=== PATIENT | female | born 1950 | race Two or more races ===

== ENCOUNTER 2021-09-16 13:46 | Emergency (ER) | payer OTHER, SELFPAY ==
[~2021-09-16] VITALS: Ht 157.5 cm; Wt 104.3 kg
[2021-09-16 14:06] VITALS: BP 117/59
--- NOTE | 2021-09-16 14:15 | NUR ---
Dr. Pradhan evaluating patient in Tent1
--- NOTE | 2021-09-16 14:38 | NUR ---
Calling CT Dept to activate Code Stroke per Dr. Pradhan
--- NOTE | 2021-09-16 14:52 | NUR ---
PT BACK FROM CT AND TAKEN TO ER BED 9.
--- NOTE | 2021-09-16 15:00 | NUR ---
71 y/o F BIB daughter c/o chest pain and R-sided facial and hand numbness x 1 day. Pt reports dizziness, blurry vision, nausea, x 4 days. Pt reports 6/10, pressure/intermittent, non-radiating pain. Patient denies vomiting, diarrhea, dysuria, fever, chills, cold-like symptoms. Pt states Tylenol and Aleve with relief to symptoms yesterday. Pt placed onto engine monitor showing VSS. Bed locked in lowest position, side rails x 2. PMH: DM, HTN, breast CA Meds: ASA NKDA
--- NOTE | 2021-09-16 15:10 | NUR ---
Pt unable to void at this time.
--- NOTE | 2021-09-16 15:15 | NUR ---
Lab at bedside
[2021-09-16 15:35] LABS: BASOPHILS % (AUTO) 0.7 % (0.0-2.0); EOSINOPHILS # (AUTO) 0.1 K/uL (0-0.4); EOSINOPHILS % (AUTO) 0.8 % (0.0-4.0); HEMATOCRIT 33.8 % (36-48); LYMPHOCYTES # (AUTO) 1.1 K/uL (2.5-16.5); LYMPHOCYTES % (AUTO) 15.3 % (20.5-51.1); MEAN CORPUSCULAR HEMOGLOBIN 28 pg (27-31); MEAN CORPUSCULAR HGB CONC 32 g/dL (33-37); MONOCYTES # (AUTO) 0.5 K/uL (0.8-1.0); NEUTROPHILS # (AUTO) 5.6 K/uL (1.8-7.7); NEUTROPHILS % (AUTO) 76.2 % (42.2-75.2); PLATELET COUNT (AUTO) 206 K/uL (140-450); RED BLOOD CELL COUNT(AUTO) 3.94 MIL/uL (4.20-5.40); RED CELL DISTRIBUTION WIDTH 14.4 % (11.6-13.7); WHITE BLOOD COUNT (AUTO) 7.4 K/uL (4.8-10.8)
--- NOTE | 2021-09-16 15:37 | NUR ---
JOSE A Orozco is at bedside for ultrasound guided IV
[2021-09-16 15:54] LABS: ALBUMIN 3.4 g/dL (3.4-5.0); ANION GAP 13.9 (8-16); ASPARTATE AMINOTRANSFERASE 15 U/L (15-37); CARBON DIOXIDE 26.7 mmol/L (21-32); CHLORIDE 104 mmol/L (98-107); CREATININE 0.9 mg/dL (0.6-1.3); GLUCOSE 150 mg/dL (74-106); POTASSIUM 3.6 mmol/L (3.5-5.1); SODIUM SERUM 141 mmol/L (136-145); TOTAL BILIRUBIN 0.4 mg/dL (0.0-1.0); UREA NITROGEN, BLOOD 13 mg/dL (7-18)
--- NOTE | 2021-09-16 16:28 | NUR ---
SANDRA swab collected, handed to CPT Julienne at ER bedside
--- NOTE | 2021-09-16 17:13 | NUR ---
Per daughter, pt has history of DM and irregular heratbeat, rheumatoid arthritis Meds: sulfasalazine, metoprolol, lasix, glipzide, ASA 81mg NKDA
[2021-09-16] MEDS ORDERED: FURO-572 PO (17:19)
[2021-09-16] MEDS ORDERED: GLIP10TE PO (17:19)
[2021-09-16] MEDS ORDERED: SULF500T6 PO (17:19)
[2021-09-16] MEDS ORDERED: ASPI-1749 PO (17:19)
[2021-09-16] MEDS ORDERED: METO100T14 PO (17:19)
--- NOTE | 2021-09-16 17:39 | NUR ---
Christy (family) requesting status update prior to pending admission. Dr. Pradhan made aware.
--- NOTE | 2021-09-16 19:15 | NUR ---
Note undone in EDM - 09/16/21 at 1943 by ANALIA Patient to be transferred to [facility] ER. Is being transferred due to higher level of care. Receiving facility has accepting physician and available space. ER physician has signed transfer form. Patient or responsible libertarian has agreed to transfer and signed form. Patient belongings inventoried and will be sent with patient. Copy of nursing notes, lab reports, EKG, Physicians Orders and X-rays to be sent with patient. Report called to [place] at receiving facility. [facility] ambulance service has been called for transfer. ETA is 10minutes.
--- NOTE | 2021-09-16 19:15 | NUR ---
Report and transfer of care endorsed to YAEL Jorgensen.
--- NOTE | 2021-09-16 19:15 | NUR ---
received report from Krunal CONLEY for continuation of care.
--- NOTE | 2021-09-16 19:28 | NUR ---
Patient appears to be resting comfortably in bed-- low fowlers, eyes open, and on the phone. Vital Signs within normal limits. Respirations even and unlabored. Patient IV patent and ability to flush 10ccs. Safety measures are in place, attached to environmental monitoring technician and will continue to monitor patient.
--- NOTE | 2021-09-16 19:42 | NUR ---
Patient to be transferred to [facility] ER. Is being transferred due to higher level of care. Receiving facility has accepting physician and available space. ER physician has signed transfer form. Patient or responsible alliance party has agreed to transfer and signed form. Patient belongings inventoried and will be sent with patient. Copy of nursing notes, lab reports, EKG, Physicians Orders and X-rays to be sent with patient. Report called to [place] at receiving facility. [facility] ambulance service has been called for transfer. ETA is 10minutes.
[2021-09-16 20:02] VITALS: BP 124/52
--- NOTE | 2021-09-16 20:02 | NUR ---
report given to crew, patient tx out of the facility
== END 2021-09-16 20:02 | disposition short-term general hospital (02) ==
LOC: MED 13:46
DX: R07.89 Other chest pain (principal); Z20.822 Contact with and (suspected) exposure to COVID-19; E11.9 Type 2 diabetes mellitus without complications; Z86.73 Personal history of transient ischemic attack (TIA), and cerebral infarction without residual deficits; Z79.84 Long term (current) use of oral hypoglycemic drugs; Z79.82 Long term (current) use of aspirin; Z79.899 Other long term (current) drug therapy
CPT/HCPCS: 70450; 71045; 80053; 83880; 84484; 85025; 85610; 85730; 86886; 86900; 86901; 93005; 99291